=== PATIENT | female | born 1965 ===

== ENCOUNTER 2022-07-17 08:22 | Day surgery (SDC) | payer OTHER | END 2022-07-17 14:30 | disposition home or self-care (01) | LOC: AMB-ENDOS 08:22 → EDBD 13:15 → AMB-ENDOS 13:15 | PROVIDERS: ATTEND Colon & Rectal Surgery | DX: R19.4 Change in bowel habit (principal); K57.30 Diverticulosis of large intestine without perforation or abscess without bleeding; K64.8 Other hemorrhoids; Z20.822 Contact with and (suspected) exposure to COVID-19 ==